=== PATIENT | female | born 1995 | race Caucasian/White ===

== ENCOUNTER 2018-11-19 18:53 | Outpatient (CLI) | payer OTHER ==
[~2018-11-19] VITALS: Ht 160 cm; Wt 94.5 kg
[2018-11-19 19:23] VITALS: BP 134/86; PULSE 104; TEMP 98.1
[2018-11-19] MEDS ORDERED: PRENATAL (19:29)
[2018-11-19] MEDS ORDERED: ASPIRIN 81M81 MG/TA2 PO (19:29)
[2018-11-19 20:45] VITALS: BP 123/60; PULSE 108
--- NOTE | 2018-11-19 20:45 | NUR ---
1909- Pt arrived on the unit with complaints of contractions every 20-30 mins. Pt reports some discharge today but denies any vaginal bleeding and reports normal movement. EFM and toco monitors placed. Amniotrace negative. SVE by this RN -. Vitals signs WNL. Plan of care for labor assessment discussed. 2019- SVE by this RN -. 2034- Information reviewed with Dr. Person. Orders for discharge home received. 2044- Discharge instructions reviewed with pt. Pt verbalized an understanding, agrees with the plan and states no questions at this time.
== END 2018-11-19 20:50 | disposition home or self-care (01) ==
LOC: LDRO 18:53
DX: Z34.93 Encounter for supervision of normal pregnancy, unspecified, third trimester (principal); Z3A.36 36 weeks gestation of pregnancy

== ENCOUNTER 2018-11-22 20:07 | Outpatient (CLI) | payer OTHER ==
[~2018-11-22] VITALS: Ht 160 cm; Wt 98.6 kg
[~2018-11-22 20:07] MED LIST: ASPIRIN 81M81 MG/TA2 PO; PRENATAL
--- NOTE | 2018-11-22 20:15 | NUR ---
Ambulatory to unit for labor assessment, accompanied by mother. Oriented to room, monitor, plan of care. Pt reports contractions starting at "7:30 when I was in the shower, and I threw up."
[2018-11-22 20:33] VITALS: BP 159/83; PULSE 110; TEMP 98.1
[2018-11-22 21:00] VITALS: BP 137/73; PULSE 105
[2018-11-22 21:30] VITALS: BP 140/71; PULSE 107
--- NOTE | 2018-11-22 21:30 | NUR ---
0 SVE WITH NO CERVICAL CHANGE. STATES DOES NOT FEEL CONTRACTIONS LIKE ON ADM. 2139 DR FREGOSO NOTIFIED AND REPORT GIVEN INCLUDING B/P. ORDERS TO HAVE B/P REPEATED IN OFFICE THIS WEEK. HAS DRS APPOINTMENT IN THE AM. 2154 DISMISS INSTRUCTIONS GIVEN AND DISMISS TO HOME.
== END 2018-11-22 21:55 | disposition home or self-care (01) ==
LOC: LDRO 20:07
DX: O62.9 Abnormality of forces of labor, unspecified (principal); Z3A.36 36 weeks gestation of pregnancy

== ENCOUNTER 2018-12-03 13:35 | Outpatient (CLI) | payer OTHER ==
[~2018-12-03] VITALS: Ht 160 cm; Wt 101.4 kg
--- NOTE | 2018-12-03 13:40 | NUR ---
Pt arrives on unit ambulatory. States left sided abdominal pain since last night after having a cough since 11/29/18. Tylenol was taken at 0300 and offered some pain relief. Reports good movement. Denies vaginal bleeding, regular contractions and LOF. Changed into a clean gown. EFM and toco applied. VSS. Admission assessment completed. Pt updated on plan of care. Call light within reach. No questions or concerns at this time.
[2018-12-03 14:00] VITALS: BP 139/84; PULSE 85
== END 2018-12-03 14:30 | disposition home or self-care (01) ==
LOC: LDRO 13:35
DX: O26.893 Other specified pregnancy related conditions, third trimester (principal); R10.9 Unspecified abdominal pain; Z3A.38 38 weeks gestation of pregnancy

== ENCOUNTER → 2020-05-29 | Outpatient (CLI) | payer OTHER ==
[~2020-05-29] MED LIST changes: +MOTRIN 800800 MG/TAB PO; +PERCOCET 325 MG1 TA2 PO
[2020-05-29 17:25] LABS: BASO % 0.2 % (0.0-2.0); EOS # 0.1 (0.0-0.7); EOS % 1.1 % (0-4.0); GRAN # 5.7 (1.4-6.5); GRAN % 66.9 % (42.2-75.2); HEMATOCRIT 41.8 % (37.0-47.0); HEMOGLOBIN 13.5 g/dl (12.5-16.0); LYMPH # 2.2 (1.2-3.4); LYMPH % 25.9 % (20.0-51.0); MEAN CELL VOLUME 86 fl (80.0-100.0); MEAN CORPUSCULAR HEMOGLOBIN 28 pg (27.0-31.0); MEAN CORPUSCULAR HGB CONC 32 g/dl (33.0-37.0); MEAN PLATELET VOLUME 9.6 fl (7.4-10.4); MONO # 0.5 (0.1-0.6); MONO % 5.8 % (1.7-9.3); PLATELET COUNT 313 K/mm3 (130-400); RED BLOOD COUNT 4.85 M/mm3 (4.10-5.30); REDCELL DISTRIBUTION WIDTH-CV 13.1 % (11.5-14.5)
[2020-05-29 17:39] LABS: ALBUMIN 4.7 gm/dL (3.5-5.0); BILIRUBIN,TOTAL 0.4 mg/dL (0.0-1.0); CALCIUM 9.8 mg/dL (8.4-10.2); CREATININE, serum 0.67 (0.52-1.25); POTASSIUM 3.8 mmol/L (3.4-5.0); TOTAL PROTEIN 8.4 gm/dL (6.4-8.2)
== END ==
LOC: COL.LAB 16:52
PROVIDERS: Nurse Practitioner Family
DX: L98.9 Disorder of the skin and subcutaneous tissue, unspecified (principal)